=== PATIENT | male | born 1980 | race American Indian/Alaskan Native ===

== ENCOUNTER 2019-04-18 16:17 | Emergency (ER) | payer SELFPAY ==
--- NOTE | 2019-04-18 16:29 | Event Note ---
ED Screening Note Date of service: 04/18/19 Time: 16:27 ED Screening Note: 38 y o male presents with discoloration and redness to riught arm from a tatoo [place] This initial assessment/diagnostic orders/clinical plan/treatment(s) is/are subject to change based on patients health status, clinical progression and re- assessment by fellow clinical providers in the ED. Further treatment and workup at subsequent clinical providers discretion. Patient/guardian urged not to elope from the ED as their condition may be serious if not clinically assessed and managed. Initial orders include:
[2019-04-18 16:30] VITALS: BP 115/94
--- NOTE | 2019-04-18 20:58 | Emergency Department Report ---
- General Chief complaint: Skin/Abscess/Foreign Body Stated complaint: RT ARM TATTOO/INFECTED Time Seen by Provider: 04/18/19 16:26 Source: patient Mode of arrival: Ambulatory Limitations: No Limitations - History of Present Illness Initial comments: 38-year-old -Omani male with a history of diabetes and 2, social, orbits and symmetric department complaining of an infected tattoo to the right forearm. Tattoo was obtained 4 days ago when while in the [place], traveling [place] prescription great across his new tattoo resulting in redness, pain and swelling and an infection. Reports no fever, chills, sweats. No chest pain or palpitations. MD complaint: other -: Gradual Location: generalized, RUE Severity: mild Quality: burning Consistency: constant Improves with: none Worsens with: none - Related Data Previous Rx's Medication Instructions Recorded Last Taken Type Mupirocin [Bactroban 2%] 15 applic TP TID #15 gm 04/18/19 Unknown Rx Sulfamethoxazole/Trimethoprim 1 each PO BID #20 tablet 04/18/19 Unknown Rx [Bactrim Ds] cephALEXin [Keflex] 500 mg PO Q6HR #40 capsule 04/18/19 Unknown Rx Allergies Allergy/AdvReac Type Severity Reaction Status Date / Time No Known Allergies Allergy Unverified 04/18/19 16:28 Abscess Boil HPI - HPI Chief Complaint: Skin/Abscess/Foreign Body Stated Complaint: RT ARM TATTOO/INFECTED Time Seen by Provider: 04/18/19 16:26 Home Medications: Previous Rx's Medication Instructions Recorded Last Taken Type Mupirocin [Bactroban 2%] 15 applic TP TID #15 gm 04/18/19 Unknown Rx Sulfamethoxazole/Trimethoprim 1 each PO BID #20 tablet 04/18/19 Unknown Rx [Bactrim Ds] cephALEXin [Keflex] 500 mg PO Q6HR #40 capsule 04/18/19 Unknown Rx Allergies/Adverse Reactions: Allergies Allergy/AdvReac Type Severity Reaction Status Date / Time No Known Allergies Allergy Unverified 04/18/19 16:28 ED Review of Systems ROS: Stated complaint: RT ARM TATTOO/INFECTED Other details as noted in HPI Comment: All other systems reviewed and negative ED Past Medical Hx - Past Medical History Previous Medical History?: No - Surgical History Past Surgical History?: No - Social History Smoking Status: Current Every Day Smoker Substance Use Type: Alcohol, Marijuana - Medications Home Medications: Home Medications Medication Instructions Recorded Confirmed Last Taken Type Mupirocin [Bactroban 2%] 15 applic TP TID #15 gm 04/18/19 Unknown Rx Sulfamethoxazole/Trimethoprim 1 each PO BID #20 tablet 04/18/19 Unknown Rx [Bactrim Ds] cephALEXin [Keflex] 500 mg PO Q6HR #40 capsule 04/18/19 Unknown Rx ED Physical Exam - General Limitations: No Limitations General appearance: alert, in no apparent distress - Head Head exam: Present: atraumatic, normocephalic - Eye Eye exam: Present: normal appearance - ENT ENT exam: Present: mucous membranes moist - Neck Neck exam: Present: normal inspection - Respiratory Respiratory exam: Present: normal lung sounds bilaterally. Absent: respiratory distress - Cardiovascular Cardiovascular Exam: Present: regular rate, normal rhythm. Absent: systolic murmur, diastolic murmur, rubs, gallop - GI/Abdominal GI/Abdominal exam: Present: soft, normal bowel sounds - Rectal Rectal exam: Present: deferred - Extremities Exam Extremities exam: Present: normal inspection - Back Exam Back exam: Present: normal inspection - Neurological Exam Neurological exam: Present: alert, oriented X3 - Psychiatric Psychiatric exam: Present: normal affect, normal mood - Skin Skin exam: Present: warm, dry, other (swollen right forearm cellulitis around the tattoo with some serous drainage. There is is warm to the touch and in tenderness with palpation. No lymphadenopathy is appreciated. Pulses 2+.). Absent: rash ED Course Vital Signs 04/18/19 16:28 Temperature 98 F Pulse Rate 69 Respiratory 18 Rate Blood Pressure 115/94 O2 Sat by Pulse 99 Oximetry Critical care attestation.: If time is entered above; I have spent that time in minutes in the direct care of this critically ill patient, excluding procedure time. ED Disposition Clinical Impression: Cellulitis of arm, right, Tattoo of skin Disposition: DC-01 TO HOME OR SELFCARE Is pt being admited?: No Does the pt Need Aspirin: No Condition: Stable Instructions: Cellulitis (ED) Additional Instructions: Please follow up for a wound reevaluation in 24-48 hours Prescriptions: Sulfamethoxazole/Trimethoprim [Bactrim Ds] 1 each PO BID #20 tablet Mupirocin [Bactroban 2%] 15 applic TP TID #15 gm cephALEXin [Keflex] 500 mg PO Q6HR #40 capsule Referrals: PRIMARY CARE, [Primary Care Provider] - 3-5 Days [facility] [Provider Group] - 3-5 Days
== END 2019-04-18 21:17 | disposition home or self-care (01) ==
LOC: ED 16:17
DX: L03.113 Cellulitis of right upper limb (principal); E11.9 Type 2 diabetes mellitus without complications; F17.200 Nicotine dependence, unspecified, uncomplicated; F12.10 Cannabis abuse, uncomplicated; Z79.899 Other long term (current) drug therapy
CPT/HCPCS: 99282

== ENCOUNTER 2020-05-08 10:05 | Emergency (ER) | payer OTHER ==
[2020-05-08] MEDS ORDERED: SODIUM CHLORIDE 0.9% 1000 ML 1,000 ML IV ONE ×2 (10:34→12:48)
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
[2020-05-08] MEDS ORDERED: diazePAM 10 MG/2 ML SYRINGE IV ONE ×4 (10:45→15:35)
[2020-05-08 12:30] LABS: Bacteria,Urine 1+ /HPF (Negative); Bilirubin,Urine NEG (Negative); Blood,Urine SM (Negative); Color,Urine Colorless (Yellow); Protein,Urine <15 mg/dL mg/dL (Negative); Urobilinogen,Urine < 2.0 mg/dL (<2.0)
[2020-05-08 12:41] LABS: Basophils % (Auto) 0.8 % (0.0-1.8); Eosinophils # (Auto) 0.2 K/mm3 (0.0-0.4); Eosinophils % (Auto) 3.5 % (0.0-4.3); Hematocrit 35.7 % (35.5-45.6); Hemoglobin 12.3 gm/dl (11.8-15.2); Lymphocytes # (Auto) 1.4 K/mm3 (1.2-5.4); Lymphocytes % (Auto) 25.4 % (13.4-35.0); Mean Corpuscular HGB Conc 34 % (32-34); Mean Corpuscular Volume 88 fl (84-94); Monocytes # (Auto) 0.4 K/mm3 (0.0-0.8); Monocytes % (Auto) 6.8 % (0.0-7.3); Platelet Count 165 K/mm3 (140-440); Red Blood Count 4.07 M/mm3 (3.65-5.03); Red Cell Distribution Width 14.5 % (13.2-15.2)
[2020-05-08 12:52] LABS: Alanine Aminotransferase 9 units/L (7-56); Blood Urea Nitrogen 9 mg/dL (9-20); Hemolysis Index 4
[2020-05-08 12:55] LABS: BUN/Creatinine Ratio 15
[2020-05-08] MEDS ORDERED: NITROFURANTOIN MONOHYD/M-CRYST 100 MG CAP PO ONE (13:42)
--- NOTE | 2020-05-08 15:20 | Cat Scan Report ---
CT ABDOMEN AND PELVIS WITHOUT IV CONTRAST INDICATION: Abdominal pain. COMPARISON: None available. TECHNIQUE: All CT scans at this facility use dose modulation, automated exposure control, iterative reconstructi on or weight based dosing, when appropriate, to reduce radiation dose to as low as reasonably achieva ble. FINDINGS: Lung Bases: No significant abnormality. Skeletal System: No acute abnormality. ABDOMEN: Liver: No significant abnormality. There is a small cyst in the posterior medial right hepatic lobe. Gallbladder: No significant abnormality. Bile Ducts: No significant abnormality. Pancreas: No significant abnormality. Spleen: No significant abnormality. Adrenals: No significant abnormality. Right Kidney: No significant abnormality. Left Kidney: No significant abnormality. Upper GI tract: No significant abnormality. Lymph Nodes: No significant adenopathy. Aorta: No significant abnormality. Additional Findings: IVC filter is noted. PELVIS: Colon: No acute abnormality. There is mild constipation. Urinary Bladder and Distal Ureters: There is a small bladder stone. The bladder is otherwise unremark able. Appendix: Not visualized. Lymph Nodes: No significant adenopathy. Additional Findings: None. IMPRESSION: 1. Within the limitations of non contrast technique, no acute process in the abdomen or pelvis. 2. Incidental findings, as above. Signer Name: Kendall Kebede MD Signed: 05/08/2020 3:16 PM Workstation Name: [id number]
[2020-05-08] MEDS ORDERED: NITROFURANTOIN MONOHYD/M-CRYST 100 MG CAP ONE (15:49)
[2020-05-08 19:14] VITALS: BP 136/83
[2020-05-08] MEDS ORDERED: BACLOFEN 10 MG TAB PO SCH (20:00)
== END 2020-05-08 19:14 | disposition home or self-care (01) ==
LOC: ED 10:05
DX: S14.129S Central cord syndrome at unspecified level of cervical spinal cord, sequela (principal); M62.838 Other muscle spasm; N39.0 Urinary tract infection, site not specified; I10 Essential (primary) hypertension; F17.200 Nicotine dependence, unspecified, uncomplicated; F12.10 Cannabis abuse, uncomplicated; Z79.899 Other long term (current) drug therapy; X58.XXXS Exposure to other specified factors, sequela
CPT/HCPCS: 36415; 74176; 80053; 81001; 82550; 83735; 85025; 87086; 96361; 96374; 96376; 99285; J3360; J7030